=== PATIENT | male | born 1990 | race Caucasian/White ===

== ENCOUNTER → 2020-05-03 13:32 | Outpatient (CLI) | payer OTHER, SELFPAY ==
--- NOTE | 2020-06-02 13:43 | DI.ECHO.S_ITS ---
Echocardiogram Report + + :Name: JACQUE WHARTON Study Date: 05/03/2020 Height: 68 in : :[facility] Weight: 175 lb : : Gender: Male BSA: 1.9 m2 : :: 1990 Age: 29 yrs BP: 113/78 mmHg: :Reason For Study: Murmur : : Performed By: Cony Page : + + Interpretation Summary The ejection fraction is estimated to be 55-60%. Diastolic parameters suggest probable normal left ventricular diastolic function and normal filling pressures. The right ventricle is normal in size and function. Pulmonary artery pressures cannot be estimated because of the lack of a measurable TR jet velocity. Both atria are normal in size. There is no significant valvular heart disease. The aortic root is normal size. Procedure: A two-dimensional transthoracic echocardiogram with color flow and Doppler was performed. The study quality was technically adequate. There is no prior echocardiogram noted for this patient. The patient was in normal sinus rhythm during the exam. Left Ventricle: The left ventricle is normal in size, wall thickness, and systolic function without any focal wall motion abnormalities. The ejection fraction is estimated to be 55-60%. Diastolic parameters suggest probable normal left ventricular diastolic function and normal filling pressures. Right Ventricle: The right ventricle is normal in size and function. Atria: Both atria are normal in size. There is no Doppler evidence for an interatrial shunt. Mitral Valve: The mitral valve is normal in structure and function. There is trace mitral regurgitation. Aortic Valve: The aortic valve is trileaflet. The aortic valve opens well. No aortic regurgitation is present. Tricuspid Valve: The tricuspid valve is normal in structure and function. There is a trace or physiologic amount of tricuspid regurgitation. Pulmonary artery pressures cannot be estimated because of the lack of a measurable TR jet velocity. Pulmonic Valve: The pulmonic valve is not well seen, but is grossly normal. There is trace pulmonic regurgitation. There is no significant valvular heart disease. Great Vessels: The aortic root is normal size. The ascending aorta is normal in size. The pulmonary artery is normal size. The IVC is of normal diameter and collapses greater than 50% with a sniff. This suggests a low right atrial pressure of 3 mm Hg. Pericardium/ Pleura There is no pericardial effusion. There is no pleural effusion. MMode/2D Measurements & Calculations LVIDd: 5.3 cm LVOT diam: 2.1 cm LVIDs: 3.8 cm Ao root diam: 2.9 cm FS: 29.4 % asc Aorta Diam: 2.8 cm EPSS: 0.37 cm IVSd: 0.68 cm LVPWd: 0.72 cm LV tam. diameter/BSA (cm/m^2): 2.8 LV sys. diameter/BSA (cm/m^2): 1.9 LA A2 area: 18.9 cm2 RA long axis: 4.8 cm LA A4 area: 18.4 cm2 RA area: 15.7 cm2 LA length (vol): 5.7 cm RA vol: 44.2 ml LA vol: 52.2 ml RA : 22.9 ml/m2 LA vol index: 27.1 ml/m2 IVC diam: 2.1 cm RVD1 (basal): 4.3 cm TAPSE: 2.2 cm Doppler Measurements & Calculations Ao V2 max: 128.8 cm/sec LVOT Max Sergio: 97.4 cm/sec Ao V2 mean: 92.4 cm/sec LV V1 max P.8 mmHg Ao max P.6 mmHg LV V1 VTI: 17.3 cm Ao mean P.7 mmHg FATMATA(I,D): 2.5 cm2 Ao V2 VTI: 23.2 cm FATMATA(V,D): 2.5 cm2 sev ratio: 0.75 FATMATA indexed to BSA (cm^2/m^2): 1.3 MV E max sergio: 66.3 cm/sec PA V2 max: 99.2 cm/sec MV A max sergio: 47.8 cm/sec PA V2 mean: 69.9 cm/sec MV E/A: 1.4 PA mean P.2 mmHg Med Peak E' Sergio: 15.1 cm/sec PA Accel Time: 0.12 sec E/E' med: 4.4 Lat Peak E' Sergio: 17.8 cm/sec E/E' lat: 3.7 E/e' average: 4.1 MV dec time: 0.28 sec SV(LVOT): 57.2 ml Reading Physician:05:08 PM
== END ==
PROVIDERS: PCP Registered Nurse Diabetes Educator; Referring Provider Registered Nurse Diabetes Educator; Visit Provider Registered Nurse Diabetes Educator
DX: R01.1 Cardiac murmur, unspecified (principal)
CPT/HCPCS: 93306

== ENCOUNTER → 2021-03-30 08:10 | Outpatient (CLI) | payer OTHER, SELFPAY ==
--- NOTE | 2021-03-30 08:13 | DI.RAD.S_ITS ---
PROCEDURE: FL SHOULDER INJECTION MR/CT LT INDICATIONS: LEFT SHOULDER LABRAL TEAR COMPARISON: [facility], MR, MR SHOULDER LT W CON, 03/30/2021, 9:24. TECHNIQUE: The indications, alternatives, benefits, risks, and complications of the procedure were explained to the patient. Written informed consent was obtained and placed in the chart. The shoulder was examined fluoroscopically and a site for needle placement chosen for entry into the glenohumeral joint from an anterior approach. The skin was prepped and draped in a sterile fashion, and 1% lidocaine infiltrated from skin down to joint capsule. A spinal needle was inserted into the glenohumeral joint, and a small amount of iodinated contrast media injected to confirm intra-articular placement of the needle tip. This was followed by approximately 12 mL dilute solution of a gadolinium containing MR contrast agent. The needle was removed and a dressing was applied. The patient was given postprocedural instructions and sent to the MR suite for MR imaging. FINDINGS: A single fluoroscopic spot image demonstrates intra-articular location of injected iodinated contrast. IMPRESSION: Successful fluoroscopically guided administration of dilute Gadolinium solution into the shoulder joint for MR arthrogram. Dictated by: Alex Park M.D. on 03/30/2021 at 11:38 Approved by: Alex Park M.D. on 03/30/2021 at 11:39
--- NOTE | 2021-03-30 08:13 | DI.MRI.S_ITS ---
PROCEDURE: MR SHOULDER LT W CON INDICATIONS: LEFT SHOULDER LABRAL TEAR TECHNIQUE: After the administration of 12 mL of dilute intra-articular Gadolinium contrast, oblique coronal T1 and T2 spin echo with fat saturation, oblique sagittal T1 spin echo with and without fat saturation, oblique sagittal T2 fast spin echo with fat saturation, axial T1 spin echo with fat saturation through the shoulder. COMPARISON: None. FINDINGS: Image quality: Excellent. Rotator cuff: Tendinosis and low-grade articular and bursal surface partial thickness tear involving distal supraspinatus at its insertion on the humeral head is seen. Distal infraspinatus tendinosis is also noted. Distal subscapularis tendon is intact. No full-thickness rotator cuff tendon rupture. No rotator cuff muscle atrophy on sagittal images. Bones and bursae: No bone marrow contusions or fractures. No acromioclavicular joint degeneration. The acromion demonstrates conventional anatomy, without an os acromiale. Capsule and soft tissues: There is signal abnormality and contour irregularity involving superior anterior labrum with contrast extension at 12 to 2 o'clock position suggestive of superior anterior labral tear. The glenohumeral ligaments appear intact. The long head of the biceps tendon demonstrates normal location and morphology. The rotator interval appears normal, without fibrosis. The coracohumeral ligament is of normal thickness. No intra-articular bodies. IMPRESSION: 1. Tendinosis and low-grade articular and bursal surface partial thickness tear involving distal supraspinatus at its insertion on the humeral head. Distal infraspinatus tendinosis. No full-thickness rotator cuff tendon rupture. 2. No marrow edema. No fracture or dislocation. 3. Suggestion of superior anterior labral tear at 12 to 2 o'clock position. Dictated by: Obed Vernon M.D. on 03/30/2021 at 10:46 Approved by: Obed Vernon M.D. on 03/30/2021 at 10:50
== END ==
PROVIDERS: PCP Registered Nurse Diabetes Educator; Referring Provider Family Medicine; Visit Provider Family Medicine
DX: S43.492A Other sprain of left shoulder joint, initial encounter (principal); S46.012A Strain of muscle(s) and tendon(s) of the rotator cuff of left shoulder, initial encounter; X58.XXXA Exposure to other specified factors, initial encounter
CPT/HCPCS: 23350; 73222; 77002